=== PATIENT | female | born 1950 | race Caucasian/White ===

== ENCOUNTER → 2016-08-23 | Outpatient (CLI) | payer BC ==
[~2016-08-23] MED LIST: DIAZEPAM 10 MG/2 ML SYR ONE; ONDANSETRON 4 MG/2 ML VIAL ONE
--- NOTE | 2016-08-23 12:17 | MA ---
Screening Digital Mammogram With Tomosynthesis Clinical Indications: Routine screening. Technique: Standard digital cephalocaudal and tomosynthesis mediolateral oblique projections are obt ained. The digital images are processed by the [employer] computer aided detection system. Comparison: July 2015, July 2014, July 2013, July 2012 and July 2011 Breast density: C; The breast tissue is heterogeneously dense, which could obscure detection of small masses. Findings: CAD was reviewed. Subtle focal architectural distortion upper left breast at approximately the 12 o'clock position. The remainder of the left and right breast are stable Impression: Architectural distortion upper left breast. Recommendation: Spot mammographic compression views and ultrasound for further evaluation and charac terization purposes. BI-RADS 0: Needs additional imaging evaluation, upper left breast [facility] will send a result letter to the patient. Negative mammography should not preclude additional workup of a clinically suspicious finding. The patient's information is entered into a reminder system with a target due date for her next mammo gram.
== END ==
LOC: FIMAGING 11:07
DX: Z12.31 Encounter for screening mammogram for malignant neoplasm of breast (principal)
CPT/HCPCS: G0202; J2405

== ENCOUNTER → 2016-09-02 | Outpatient (CLI) | payer BC ==
--- NOTE | 2016-09-02 14:54 | MA ---
Diagnostic Digital Mammogram left Breast Clinical Indications: Architectural distortion upper left breast. Technique: Compression was obtained in CC, mediolateral oblique, and 90-degree lateral views of the left breast. This examination is processed by the [employer] computer-aided detection system. Comparison: August 23, 2016; August 19, 2015; studies dating back to July 21, 2010 Breast density: D; The breasts are extremely dense, which lowers the sensitivity of mammography. Findings: CAD was reviewed. Dense breast parenchymal tissue is noted without definite mass lesion appreciated. The architectural distortion previously suspected is less apparent on the additional views obtained. Dense breast paren chyma, however, could easily obscure underlying mass. Impression: No significant abnormality identified upper left breast on additional imaging. However, d ense breast parenchymal tissue could easily obscure underlying mass. Ultrasound was performed for fur ther characterization. BI-RADS 0
--- NOTE | 2016-09-02 15:22 | US ---
Ultrasound left breast History: Dense breast parenchymal tissue that could possibly obscure previously suspected architectur al distortion. Findings: Ultrasound of the upper left breast demonstrates normal dense underlying breast parenchymal tissue without significant solid or cystic mass. Impression: Benign findings ultrasound left breast. The ultrasound pattern corresponds with mammograp hic findings. BI-RADS 2 Routine annual mammographic followup recommended. The results of this study were reviewed with the patient.
== END ==
LOC: FIMAGING 14:03
PROVIDERS: ATTEND Internal Medicine
DX: Z12.39 Encounter for other screening for malignant neoplasm of breast (principal); R92.2 Inconclusive mammogram
CPT/HCPCS: G0206

== ENCOUNTER → 2017-08-28 | Outpatient (CLI) | payer BC | LOC: FIMAGING 14:57 | PROVIDERS: ATTEND Internal Medicine | DX: Z12.31 Encounter for screening mammogram for malignant neoplasm of breast (principal) ==

== ENCOUNTER → 2017-10-24 | Outpatient (CLI) | payer BC | LOC: BMCIMAGING 08:08 | PROVIDERS: ATTEND Obstetrics & Gynecology | DX: N95.0 Postmenopausal bleeding (principal); N88.8 Other specified noninflammatory disorders of cervix uteri ==

== ENCOUNTER → 2018-06-29 | Outpatient (CLI) | payer BC | LOC: FIMAGING 08:40 | PROVIDERS: ATTEND Obstetrics & Gynecology Gynecology | DX: Z13.820 Encounter for screening for osteoporosis (principal); Z78.0 Asymptomatic menopausal state ==

== ENCOUNTER → 2018-10-03 | Outpatient (CLI) | payer BC | LOC: FIMAGING 12:18 | PROVIDERS: ATTEND Obstetrics & Gynecology Gynecology | DX: Z12.31 Encounter for screening mammogram for malignant neoplasm of breast (principal) ==